=== PATIENT | male | born 1965 | race Caucasian/White ===

== ENCOUNTER → 2018-01-16 13:58 | Outpatient (POV) | payer BC, SELFPAY | PROVIDERS: Visit Provider Nurse Practitioner Acute Care | DX: Z00.00 Encounter for general adult medical examination without abnormal findings (principal) ==

== ENCOUNTER 2019-12-04 17:05 | Emergency (ER) | payer BC, SELFPAY ==
[2019-12-04 17:21] VITALS: BP 127/106; PULSE 71; RESP 20; TEMP 36.8; O2SAT 96; BMI 31.9
--- NOTE | 2019-12-04 17:40 | HMH.EDUTC ---
[facility] [place] Disposition Clinical Impression: Finger laceration Qualifiers: Encounter type: initial encounter Finger: thumb Damage to nail status: without damage Foreign body presence: without foreign body Laterality: left Qualified Code(s): S61.012A - Laceration without foreign body of left thumb without damage to nail, initial encounter Disposition: Home, Self-Care Condition on Discharge: Good Instructions: How to Care for a Laceration After Repair, Laceration Repair, DI for Laceration Repair -- Simple, DI for Laceration Repair -- Finger Additional Instructions: You have required stitches today. Please read the following instructions so you know how to care for them: 1. Keep wound area dry for the first 24 hours. 2 May clean gently with mild soap and water, after 48 hours to prevent crusting over suture knots. 3. You may shower if your provider gives permission but do not take a bath until the skin is healed.. 4. Never leave a wet dressing or Band-Aid on your stitches as this allows bacteria to reach the area and may cause infection. Band-aids can cause the wound to sweat and not recommended to wear for long periods of time Watch for signs of infection: Increasing redness, tenderness or warmth around the suture site Unusual swelling around the site Appearance of pus around each suture or any red streaks Fever If you develop any of the above signs or symptoms of infection, Follow up with Family Physician immediately 5. Suture removal in _10-14___days 6. Return to [facility] or follow up with family doctor for removal. This can be done by any medical provider during regular hours on Tuesday through Tuesday, by appointment. Referrals: Miguel Barahona MD [Primary Care Provider] - Time of Disposition: 17:42 Medical Decision Making - Attila Inquiry Pt receiving controlled substance: No Attila was queried for this patient: No Vital Signs: 12/04/19 17:21 12/04/19 17:44 12/04/19 17:57 Temperature 98.2 F 98.2 F Temperature Source Oral Pulse Rate 71 Pulse Rate [Right Brachial] 71 Respiratory Rate 20 20 Blood Pressure 128/89 Blood Pressure [Right Arm] 127/106 H 128/89 Blood Pressure Mean [Right Arm] 113 102 Blood Pressure Source [Right Arm] Automatic Cuff Automatic Cuff Blood Pressure Position [Right Arm] Sitting Sitting 02 Sat by Pulse Oximetry 96 Oxygen Delivery Method Room Air Orders (Tests/Meds): ED MEDICATIONS Discontinued Medications Generic Name Dose Route Start Last Admin Trade Name Darrion PRN Reason Stop Dose Admin Tetanus/Reduced Diphtheria/Acell Pertussis 0.5 ml 12/04/19 17:25 12/04/19 17:50 Adacel Tdap 0.5ml Syringe IM 12/04/19 17:26 0.5 ml .ONCE ONE Administration [facility] [place] HPI - General Stated complaint: AO [id number] lac L thumb Time Seen by Provider: 12/04/19 17:20 Mode of Arrival: Ambulatory Source of Information: Patient Limitations: No Limitations Description of Symptoms (Recalled from Triage Doc. by RN): LACERATION TO LEFT THUMB AFTER A CERAMIC PLATE FELL AND BROKE ON HIS HAND HEENT Symptoms (Recalled from RN notes): No Resp Symptoms (Recalled from RN notes): No Skin Symptoms (Recalled from RN notes): Yes MS Symptoms (Recalled from RN notes): No Functional Status (Recalled from RN notes): WNL - History of Present Illness Provider Complaint: Patient states that he was at home and he was moving a refridgerator when a old plate fell and broke and struck him on the left thumb and caused laceration to his left thumb State that he looked at it and thought he may need stiches and unsure when his last tetanus was - Related Data Home Medications Medication Instructions Recorded Confirmed lisinopriL [Lisinopril 10mg Tab] 10 mg PO DAILY 12/04/19 12/04/19 Allergies Allergy/AdvReac Type Severity Reaction Status Date / Time No Known Allergies Allergy Verified 02/23/18 11:40 - Worker's Comp Is this a Worker's Comp case?: No [facility] History - Hepatitis A Screen
[2019-12-04 17:44] VITALS: BP 128/89
[2019-12-04 17:57] VITALS: BP 128/89; PULSE 71; RESP 20; TEMP 36.8; O2SAT 96
== END 2019-12-04 18:05 | disposition home or self-care (01) ==
PROVIDERS: Emergency Provider Nurse Practitioner; PCP Family Medicine
DX: S61.012A Laceration without foreign body of left thumb without damage to nail, initial encounter (principal); I10 Essential (primary) hypertension; Z23 Encounter for immunization; W26.9XXA Contact with unspecified sharp object(s), initial encounter; Y92.010 Kitchen of single-family (private) house as the place of occurrence of the external cause
CPT/HCPCS: 12001; 90471; 90715; 99202

== ENCOUNTER 2020-11-08 12:41 | Emergency (ER) | payer BC, SELFPAY ==
[2020-11-08 13:19] VITALS: BP 140/90; PULSE 76; RESP 18; TEMP 36.6; O2SAT 98; BMI 28.8
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
[2020-11-08 13:57] VITALS: BP 135/87; PULSE 82; RESP 14; TEMP 36.6
== END 2020-11-08 13:57 | disposition home or self-care (01) ==
PROVIDERS: Emergency Provider Nurse Practitioner Family; PCP Family Medicine
DX: S01.01XA Laceration without foreign body of scalp, initial encounter (principal); W27.8XXA Contact with other nonpowered hand tool, initial encounter; Y92.89 Other specified places as the place of occurrence of the external cause; I10 Essential (primary) hypertension
CPT/HCPCS: 12001; 99202; G0463